=== PATIENT | female | born 1955 | race Two or more races ===

== ENCOUNTER 2022-07-31 08:38 | Outpatient (CLI) | payer OTHER ==
[~2022-07-31 08:38] MED LIST: DIOVAN160 M1 PO; ENJUVIA0.625 MG PO; KETO10TA2 PO; LECITHIN1200 MG PO; LEVAQUIN750 MG PO; OMEGA-3 FISH OI1 CAP PO
== END 2022-07-31 08:43 | disposition home or self-care (01) ==
LOC: SONOGRAMA 08:38
PROVIDERS: ATTEND Internal Medicine Cardiovascular Disease
DX: M12.9 Arthropathy, unspecified (principal)

== ENCOUNTER → 2023-04-09 | Outpatient (CLI) | payer OTHER | END | disposition home or self-care (01) | LOC: NUCLEAR 07:39 | PROVIDERS: ATTEND Internal Medicine Cardiovascular Disease | DX: I10 Essential (primary) hypertension (principal); R07.9 Chest pain, unspecified ==

== ENCOUNTER 2023-05-14 07:42 | Outpatient (CLI) | payer OTHER | END 2023-05-14 07:45 | disposition home or self-care (01) | LOC: NUCLEAR 07:42 | PROVIDERS: ATTEND Internal Medicine Cardiovascular Disease | DX: R07.9 Chest pain, unspecified (principal); I10 Essential (primary) hypertension | CPT/HCPCS: 78452; 93017; A9500; J0153 ==